=== PATIENT | female | born 1990 | race Caucasian/White ===

== ENCOUNTER 2022-06-22 01:51 | Emergency (ER) | payer MEDICAID ==
[~2022-06-22] VITALS: Ht 167.6 cm; Wt 99.8 kg
--- NOTE | 2022-06-22 02:20 | NUR ---
Patient arrived to ED 7 for rummaging through cupboard and grabbed scissors. Patient noticed blood and laceration on left hand. Patient said she got scissors for hair. Patient denies PMH. Respiration even and unlabored. Patient has some anxiety due to environment situation and other patients around.
[2022-06-22 02:24] VITALS: BP_SYST 123
--- NOTE | 2022-06-22 02:25 | NUR ---
Patient triaged and placed in ED RM 07. VSS and patient appears in no acute distress at this time. MD Curtis notified of need for MSE. Report given to JAIME Egan.
[2022-06-22] MEDS ORDERED: LIDOCAINE 1% 10 MG/ML, 20 ML MDV INJ ONE (02:30)
[2022-06-22 02:50] VITALS: BP_SYST 123
--- NOTE | 2022-06-22 03:03 | NUR ---
MD BURK AT BEDSIDE EXAMINING PT.
[2022-06-22] MEDS ORDERED: IBUPROFEN 600 MG TABLET PO ONE (03:45)
--- NOTE | 2022-06-22 03:50 | NUR ---
Patient given written and verbal discharge instructions and verbalizes understanding. ER MD discussed with patient the results and treatment provided. Patient in stable condition. ID arm band removed. EDUCATED ON FOLLOW UP WOUND CHECK AND THEN SUTURE REMOVAL. Opportunity for questions provided and answered. Medication side effect fact sheet provided.
== END 2022-06-22 03:50 | disposition home or self-care (01) ==
LOC: SED 01:51
DX: S61.412A Laceration without foreign body of left hand, initial encounter (principal); Z79.899 Other long term (current) drug therapy; W27.2XXA Contact with scissors, initial encounter; Y93.89 Activity, other specified; Y92.89 Other specified places as the place of occurrence of the external cause; Y99.8 Other external cause status
CPT/HCPCS: 99282